=== PATIENT | male | born 1975 | race African-American/Black ===

== ENCOUNTER 2017-01-26 21:01 | Emergency (ER) | payer SELFPAY ==
[~2017-01-26] VITALS: Ht 172.7 cm; Wt 76.3 kg
[~2017-01-26 21:01] MED LIST: CYCL-36 PO; HYDR-3535 PO; IBUP600 PO
[2017-01-26 21:12] VITALS: BP 127/73; PULSE 79; RESP 18; TEMP 98.4; O2SAT 97
[2017-01-26] MEDS ORDERED: HYDR-3583 PO (21:37)
[2017-01-26] MEDS ORDERED: GABA300C5 PO (21:37)
[2017-01-26] MEDS ORDERED: CYCL1TAB29 PO (21:37)
--- NOTE | 2017-01-26 22:04 | RADRPT ---
EXAM DATE/TIME: 01/26/2017 21:51 [place] COMPARISON: No previous studies available for comparison. INDICATIONS : Left foot pain. MEDICAL HISTORY : None. SURGICAL HISTORY : None. ENCOUNTER: Initial ACUITY: 1 day PAIN SCORE: 5/10 LOCATION: Left foot. FINDINGS: Three view examination of the left foot demonstrates no soft tissue swelling, dislocation, or fractur e. The tarsal bones appear intact. The interphalangeal and metatarsophalangeal joints are intact. The calcaneus is intact. Bony mineralization is normal. CONCLUSION: No acute fracture. Marlon Samuel MD on January 26, 2017 at 22:02 Board Certified Radiologist. This report was verified electronically.
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
== END 2017-01-26 22:20 | disposition home or self-care (01) ==
LOC: PHEFT 21:01
DX: S90.32XA Contusion of left foot, initial encounter (principal); R20.0 Anesthesia of skin; Z72.0 Tobacco use; Z87.39 Personal history of other diseases of the musculoskeletal system and connective tissue; Z86.59 Personal history of other mental and behavioral disorders; W20.8XXA Other cause of strike by thrown, projected or falling object, initial encounter
CPT/HCPCS: 73630; 99283

== ENCOUNTER 2017-08-24 16:18 | Emergency (ER) | payer OTHER ==
[~2017-08-24] VITALS: Ht 172.7 cm; Wt 74.0 kg
[~2017-08-24 16:18] MED LIST changes: +CYCL10TA PO; +GABA300C5 PO; +HYDR-3583 PO
[2017-08-24 16:23] VITALS: BP 131/76; PULSE 72; RESP 16; TEMP 98.2; O2SAT 98
[2017-08-24] MEDS ORDERED: ERYTOIN10 LEFT EYE (17:12)
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
[2017-08-24] MEDS ORDERED: ERYTHROMYCIN 0.5% OPTH OINT 3.5 GM TUBO LEFT EYE ONE (17:15)
== END 2017-08-24 17:35 | disposition home or self-care (01) ==
LOC: PHEFT 16:18
DX: T26.12XA Burn of cornea and conjunctival sac, left eye, initial encounter (principal); R56.9 Unspecified convulsions; F17.200 Nicotine dependence, unspecified, uncomplicated; X10.2XXA Contact with fats and cooking oils, initial encounter; Z88.6 Allergy status to analgesic agent; Z79.899 Other long term (current) drug therapy
CPT/HCPCS: 99283